=== PATIENT | female | born 1955 | race Caucasian/White ===

== ENCOUNTER → 2021-08-01 | Outpatient (CLI) | payer OTHER, SELFPAY ==
[2021-08-05 11:05] LABS: HPV APTIMA, High Risk Negative (Negative)
== END | disposition home or self-care (01) ==
LOC: LABSPEC 15:08
PROVIDERS: PCP Family Medicine; Referring Provider Obstetrics & Gynecology; Visit Provider Obstetrics & Gynecology
DX: Z12.4 Encounter for screening for malignant neoplasm of cervix (principal); Z78.0 Asymptomatic menopausal state
CPT/HCPCS: 87624; 88175; G0145